=== PATIENT | female | born 1990 | race Caucasian/White ===

== ENCOUNTER 2023-04-16 13:18 | Emergency (ER) | payer OTHER ==
[~2023-04-16] VITALS: Ht 167.6 cm; Wt 92.1 kg
[2023-04-16 13:29] VITALS: BP 131/83
--- NOTE | 2023-04-16 15:20 | NUR ---
Patient discharged with v/s stable. Written and verbal after care instructions given and explained. Patient verbalized understanding. Ambulatory with steady gait. All questions addressed prior to discharge. Advised to follow up with PMD.
== END 2023-04-16 15:20 | disposition home or self-care (01) ==
LOC: MED 13:18
DX: S39.012A Strain of muscle, fascia and tendon of lower back, initial encounter (principal); M54.2 Cervicalgia; V89.2XXA Person injured in unspecified motor-vehicle accident, traffic, initial encounter; Y93.89 Activity, other specified; Y92.410 Unspecified street and highway as the place of occurrence of the external cause; Y99.8 Other external cause status
CPT/HCPCS: 72110; 99283